=== PATIENT | male | born 1945 | race Caucasian/White ===

== ENCOUNTER → 2016-11-29 | Outpatient (CLI) | payer MEDICARE, BC ==
--- NOTE | 2016-11-29 14:56 | RADRPT ---
PROCEDURE: XR Knees. CLINICAL INDICATION: Bilateral knee pain. TECHNIQUE: Total of eight views. Weightbearing frontal, oblique, and lateral views of the both kn ees. Patellar views of both knees. COMPARISON: No prior study is available for comparison. FINDINGS: There is no fracture or dislocation. The soft tissues are normal. There are degenerative changes with osteophytes arising from all 3 joint compartment margins bilater ally. There is bilateral lateral joint compartment narrowing. There is no lytic or blastic lesion. There is no radiopaque foreign body. IMPRESSION: 1. Moderate degenerative changes of both knees predominately involving the lateral joint compartmen ts. 2. No acute abnormality. RPTAT: QQ .Kosta Farias MD, MD Date Time Electronically viewed and signed by .Kosta Farias MD, on 11/29/2016 14:56 .R/
--- NOTE | 2016-11-29 16:26 | CONS ---
Date/Time of Note Date/Time of Note DATE: 11/29/16 TIME: 16:21 Assessment/Plan Assessment/Plan Additional Assessment/Plan Assessment and diagnoses right knee effusion9 advised that this was not a large enough effusion to aspirate in order to diminish the the effusion he should do vigorous quadriceps exercises and has been shown how to do this on a regular basisMedications of been advised and hopefully with the regular vigorous exercises the effusion will diminish if not he will be seen again in 2 weeks time Consultation Date/Type/Reason Admit Date/Time Date of Consultation: Nov 29, 2016 Hx of Present Illness Chief complaint pain in both knees right worse than the left History of pain in the right knee for 1 month it started out of the blue there was no history of any injuryIntermittent pain aggravated by getting up and sitting position and twisting relieved by relaxing. 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 He walks well is no disturbance of his tonsillar grade is able to walk on his tiptoes and his heels without any difficulty is also able to do deep knee bends. Exam/Review of Systems Exam Examination of the right knee reveals no tenderness no swelling no deformityI walks well no disturbance of his tonsillar grade is able to walk on his tiptoes and his heels is able to do deep knee bends without any difficulty. The is some slight swelling with an effusion in the right kneeThe is minimal tenderness over the medial lateral joint lines and knee motion extension on the right and left 180 flexion the right and left 140. Negative Buzz test, negative Apley grinding test, negative Chon test, negative pivot shift testNo instability of the medial or lateral anterior posterior cruciate ligamentsPatella moves well in flexion and extension no evidence of crepitus or subluxation of the patellaNeurological examination reveals no deficit X-rays of the both knees shows no evidence of any fractures or dislocations the joint spaces remain well defined and there is no evidence of loose body formation. FIDEL SIERRA Nov 29, 2016 16:26
== END | disposition home or self-care (01) ==
LOC: HKI 14:13
DX: M25.461 Effusion, right knee (principal)
CPT/HCPCS: 73564; G0463

== ENCOUNTER → 2017-01-06 | Outpatient (CLI) | payer MEDICARE, BC | END | disposition home or self-care (01) | LOC: PUL 13:04 | PROVIDERS: ATTEND Internal Medicine Cardiovascular Disease | DX: R06.02 Shortness of breath (principal) | CPT/HCPCS: 94010; 94726; 94729 ==

== ENCOUNTER → 2018-01-02 | Outpatient (CLI) | END | disposition home or self-care (01) ==